=== PATIENT | female | born 1985 | race African-American/Black ===

== ENCOUNTER 2017-08-02 18:41 | Emergency (ER) | payer MEDICAID ==
[2017-08-02 19:30] VITALS: BP 108/85
[2017-08-02 22:37] LABS: APPEARANCE,URINE SLIGHTLY-CLOUDY; BILIRUBIN,URINE NEGATIVE (NEGATIVE); COLOR,URINE YELLOW; GLUCOSE, URINE NEGATIVE (NEGATIVE); KETONES,URINE NEGATIVE (NEGATIVE); LEUKOCYTE ESTERASE,URINE NEGATIVE (NEGATIVE); NITRITE,URINE POSITIVE (NEGATIVE); PROTEIN,URINE NEGATIVE (NEGATIVE); URINE SPECIFIC GRAVITY 1.027
--- NOTE | 2017-08-02 22:43 | ER Document Report ---
ED General - General Chief Complaint: Abdominal Pain Stated Complaint: ABDOMINAL PAIN Time Seen by Provider: 08/02/17 22:06 Notes: Patient is a 32-year-old female presents with complaint of pelvic pain. She says she is an onset of pain tonight into the uterine section. She feels like her uterus cramping as if she is having a strong menstrual period that she has not had any vaginal bleeding. She does have history of abnormal Pap smears. She had a cervical biopsy within the year and it came back okay however she still gets repeat Paps every 3-6 months. She is due for one now just moved to the area. She supposed to follow-up with [facility] this coming week. No fevers. She vomited once when the pain first started. No history of recent vaginal infections. She has not been sexually active since September. TRAVEL OUTSIDE OF THE [place] IN LAST 30 DAYS: No - Related Data Allergies/Adverse Reactions: No Known Allergies Allergy (Verified 08/02/17 18:50) Past Medical History - Social History Smoking Status: Never Smoker Frequency of alcohol use: None Drug Abuse: None Family History: Reviewed & Not Pertinent Review of Systems - Review of Systems Notes: My Normal Review Basic REVIEW OF SYSTEMS: CONSTITUTIONAL : Denies fever, chills, or sweats. Denies recent illness. RESPIRATORY: Denies cough, cold, or chest congestion. Denies shortness of breath, difficulty breathing, or wheezing. GASTROINTESTINAL: Denies abdominal pain. Vomiting 1 GENITOURINARY: Denies difficulty urinating, painful urination, burning, frequency, or blood in urine. FEMALE GENITOURINARY: Pelvic pain MUSCULOSKELETAL: Denies neck or back pain or joint pain or swelling. SKIN: Denies rash or skin lesions. NEUROLOGICAL: Denies altered mental status or loss of consciousness. Denies headache. Denies weakness or paralysis or loss of use of either side. Denies problems with gait or speech. Denies sensory or motor loss. ALL OTHER SYSTEMS REVIEWED AND NEGATIVE. Physical Exam - Vital signs Vitals: Temp Pulse Resp BP Pulse Ox 98.8 F 62 18 108/85 100 08/02/17 19:28 08/02/17 19:28 08/02/17 19:28 08/02/17 19:28 08/02/17 19:28 - Notes Notes: General Appearance: Well nourished, alert, cooperative, no acute distress, mild obvious discomfort. Vitals: reviewed, See vital signs table. Head: no swelling or tenderness to the head Eyes: PERRL, EOMI, Conjuctiva clear Lungs: No wheezing, No rales, No rhonci, No accessory muscle use, good air exchange bilaterally. Heart: Normal rate, Regular rythm, No murmur, no rub Abdomen: Normal BS, soft, No rigidity, mild suprapubic and some pain just left lateral to the suprapubic region. , No guarding, no rebound, no abdominal masses , no organomegaly Extremities: strength 5/5 in all extremities, good pulses in all extremities, no swelling or tenderness in the extremities, no edema. Skin: warm, dry, appropriate color, no rash Neuro: speech clear, oriented x 3, normal affect, responds appropriately to questions. Course - Re-evaluation Re-evalutation: 08/03/17 05:47 When I went back to the room for the patient's pelvic exam she was in there. The nurse informed me that patient has eloped. Since urinalysis did have nitrites as well as bacteria in it. She therefore most likely is developing bladder infection which could be causing her pain is at night. I did call the patient home and informed her of her positive test result and recommended we start an antibiotic. She has no allergies to any antibiotics. She requested that I [facility] [place] she will pick it up. Also strongly encourage her to return to ER to follow-up closely with the crusher and binder operator reevaluation. She said she is called the crusher and binder operator Friday morning to make a follow-up appointment. Dictation of this chart was performed using voice recognition software; therefore, there may be some unintended grammatical errors. 08/03/17 06:02 - Vital Signs Vital signs: Temp Pulse Resp BP Pulse Ox 98.8 F 62 18 108/85 100 08/02/17 19:28 08/02/17 19:28 08/02/17 19:28 08/02/17 19:28 08/02/17 19:28 - Laboratory Laboratory results interpreted by me: 08/02/17 22:15 Urine Nitrite POSITIVE H Urine Urobilinogen 2.0 H Urine Ascorbic Acid 40 H Discharge - Discharge Clinical Impression: Pelvic pain UTI (urinary tract infection) Qualifiers: Urinary tract infection type: site unspecified Hematuria presence: without hematuria Qualified Code(s): N39.0 - Urinary tract infection, site not specified Condition: Stable Disposition: AGAINST MEDICAL ADVICE
== END 2017-08-03 00:12 | disposition left against medical advice (07) ==
LOC: ER 18:41
DX: N39.0 Urinary tract infection, site not specified (principal); Z53.20 Procedure and treatment not carried out because of patient's decision for unspecified reasons; R10.2 Pelvic and perineal pain; R11.10 Vomiting, unspecified
CPT/HCPCS: 81001; 81025; 99284